=== PATIENT | male | born 1970 | race Two or more races ===

== ENCOUNTER 2018-06-11 21:08 | Emergency (ER) | payer MEDICAID ==
[~2018-06-11] VITALS: Ht 167.6 cm; Wt 72.6 kg
--- NOTE | 2018-06-11 23:20 | NUR ---
Patient discharged to home in stable conditon. Written and verbal after care instructions given. Patient verbalizes understanding of instructions.
[2018-06-11 23:22] VITALS: BP 114/72
== END 2018-06-11 23:23 | disposition home or self-care (01) ==
LOC: ER 21:10
DX: S86.891A Other injury of other muscle(s) and tendon(s) at lower leg level, right leg, initial encounter (principal); F17.200 Nicotine dependence, unspecified, uncomplicated; F12.10 Cannabis abuse, uncomplicated; Z90.49 Acquired absence of other specified parts of digestive tract; X58.XXXA Exposure to other specified factors, initial encounter; Y93.89 Activity, other specified; Y92.89 Other specified places as the place of occurrence of the external cause; Y99.8 Other external cause status
CPT/HCPCS: 73590; A4663

== ENCOUNTER 2019-06-11 20:04 | Emergency (ER) | payer SELFPAY ==
[~2019-06-11] VITALS: Ht 170.2 cm; Wt 80.7 kg
--- NOTE | 2019-06-11 20:37 | NUR ---
Dr. Cardoso at bedside for MSE.
--- NOTE | 2019-06-11 20:42 | NUR ---
Patient discharged to home in stable conditon. Written and verbal after care instructions given. Patient verbalizes understanding of instructions. Pt ambulated out of ER with steady gait, no acute signs of distress, VSS, all belongings taken.
[2019-06-11 20:43] VITALS: BP 104/60
== END 2019-06-11 20:44 | disposition home or self-care (01) ==
LOC: ER 20:05
DX: H10.9 Unspecified conjunctivitis (principal); F17.200 Nicotine dependence, unspecified, uncomplicated; F12.10 Cannabis abuse, uncomplicated; Z90.49 Acquired absence of other specified parts of digestive tract
CPT/HCPCS: A4663